=== PATIENT | female | born 1940 | race Caucasian/White ===

== ENCOUNTER 2018-02-20 01:52 | Emergency (ER) | payer MEDICARE, BC ==
--- NOTE | 2018-02-20 02:07 | ER Report ---
History and Physical Time Seen By MD: 02:07 Hx. of Stated Complaint: PT HAD A NOSE BLEED AROUND 6PM, THEY WERE ABLE TO CONTROL THE BLEEDING. PT HAD ANOTHER NOSE BLEED AROUND 10PM, GOT THE BLEEDING STOPPED. PT WOKE UP NOW WITH ANOTHER NOSE BLEED. CONCERNED ABOUT BLOOD LOSS. HPI/ROS CHIEF COMPLAINT: nose bleed and elevated blood pressures. HISTORY OF PRESENT ILLNESS: This is a 77 year old female. She came in to the ER tonight with her 3rd bloody nose of the day. Had one at 1800, 2200, and then early this morning. Worried about the amount of blood lost as she does have a mild anemia. They are visiting from [place] and the cold and dry air are much worse here. She has been struggling with blood pressure issues as well. Takes Bystolic, Lisinopril (recently doubled), and still running high. No history of nose bleeds in the past. No blood thinners, but does take a baby aspirin chronically. No other bleeding such as blood in urine, stool or bruising. No chest pain. No shortness of breath. Allergies: Coded Allergies: No Known Drug Allergies (Unverified , 02/20/18) Home Meds Active Scripts Amlodipine Besylate (AMLODIPINE BESYLATE) 5 Mg Tablet, 0.5 TAB PO QDAY, #15 TAB 0 Refills Prov:HADLEY FOFANA MD 02/20/18 Reviewed Nurses Notes: Yes Constitutional Vital Sign - Last 24 Hours 02/20/18 02/20/18 02/20/18 02/20/18 01:52 01:56 01:57 02:00 Temp 97.9 Pulse ??? 76 Resp 18 B/P (MAP) 190/65 (106) 190/65 181/64 (103) Pulse Ox 88 O2 Delivery Room Air 02/20/18 02/20/18 02/20/18 02/20/18 02:07 02:34 02:37 02:40 Pulse 69 68 B/P (MAP) 148/55 (86) 155/58 (90) Pulse Ox 87 85 02/20/18 02/20/18 02/20/18 02/20/18 02:45 02:50 02:52 02:57 Pulse 66 B/P (MAP) 144/53 (83) 141/49 (79) Pulse Ox 87 89 02/20/18 02/20/18 02/20/18 02/20/18 03:00 03:05 03:07 03:10 Pulse 66 B/P (MAP) 144/54 (84) 154/56 (88) 162/57 (92) Pulse Ox 89 02/20/18 02/20/18 02/20/18 02/20/18 03:15 03:17 03:20 03:22 Pulse 67 69 B/P (MAP) 158/57 (90) 148/52 (84) Pulse Ox 85 02/20/18 02/20/18 02/20/18 02/20/18 03:25 03:27 03:30 03:32 Pulse 71 73 B/P (MAP) 140/60 (86) 144/97 (113) Pulse Ox 86 85 02/20/18 02/20/18 02/20/18 02/20/18 03:35 03:37 03:40 03:45 Pulse 72 ??? B/P (MAP) 164/62 (96) 147/59 (88) 163/67 (99) Pulse Ox 88 84 02/20/18 02/20/18 02/20/18 02/20/18 03:50 03:55 04:00 04:05 B/P (MAP) 161/62 (95) 161/59 (93) 164/61 (95) 160/53 (88) 02/20/18 02/20/18 02/20/18 04:10 04:15 04:20 Pulse 73 B/P (MAP) 161/62 (95) 159/62 (94) 163/57 (92) Pulse Ox 87 Physical Exam General Appearance: The patient is alert, has no immediate need for airway protection and no current signs of toxicity. Eyes: Pupils equal and round no injection. ENT: Normal oral mucosa. Moist mucous membranes. The nasal passages show evidence of bleeding from the left nasal passage. No active bleeding. Has evidence of the mid nasal septum where it was bleeding. Neck: Neck is supple and non tender. Respiratory: Chest is non tender, lungs are clear to auscultation. Cardiac: regular rate and rhythm Skin: No rashes or lesions. DIFFERENTIAL DIAGNOSIS: After history and physical exam differential diagnosis was considered for nose bleed, with elevated blood pressure. Medical Decision Making Data Points Result Diagram: 02/20/18 0230 Laboratory Hematology Test 02/20/18 02:30 02/20/18 03:54 Red Blood Count 3.74 M/uL (4.17-5.56) Mean Corpuscular Volume 79.7 fL (80.0-96.0) Mean Corpuscular Hemoglobin 25.8 pg (26.0-33.0) Mean Corpuscular Hemoglobin Concent 32.3 g/dL (32.0-36.0) Red Cell Distribution Width 17.1 % (11.5-14.5) Mean Platelet Volume 8.5 fL (7.2-11.1) Neutrophils (%) (Auto) 76.8 % (39.4-72.5) Lymphocytes (%) (Auto) 11.3 % (17.6-49.6) Monocytes (%) (Auto) 9.7 % (4.1-12.4) Eosinophils (%) (Auto) 1.3 % (0.4-6.7) Basophils (%) (Auto) 0.9 % (0.3-1.4) Nucleated RBC Relative Count (auto) 0.0 /100WBC Neutrophils # (Auto) 6.3 K/uL (2.0-7.4) Lymphocytes # (Auto) 0.9 K/uL (1.3-3.6) Monocytes # (Auto) 0.8 K/uL (0.3-1.0) Eosinophils # (Auto) 0.1 K/uL (0.0-0.5) Basophils # (Auto) 0.1 K/uL (0.0-0.1) Nucleated RBC Absolute Count (auto) 0.00 K/uL Prothrombin Time 13.2 seconds (12.0-14.4) Prothromb Time International Ratio 1.00 Activated Partial Thromboplast Time 25 seconds (23-35) Whole Blood Glucose 157 mg/DL (75-110) Chemistry Test 02/20/18 02:30 02/20/18 03:54 White Blood Count 8.2 k/uL (4.5-11.0) Red Blood Count 3.74 M/uL (4.17-5.56) Hemoglobin 9.6 g/dL (12.0-16.0) Hematocrit 29.8 % (34.0-47.0) Mean Corpuscular Volume 79.7 fL (80.0-96.0) Mean Corpuscular Hemoglobin 25.8 pg (26.0-33.0) Mean Corpuscular Hemoglobin Concent 32.3 g/dL (32.0-36.0) Red Cell Distribution Width 17.1 % (11.5-14.5) Platelet Count 259 K/uL (150-450) Mean Platelet Volume 8.5 fL (7.2-11.1) Neutrophils (%) (Auto) 76.8 % (39.4-72.5) Lymphocytes (%) (Auto) 11.3 % (17.6-49.6) Monocytes (%) (Auto) 9.7 % (4.1-12.4) Eosinophils (%) (Auto) 1.3 % (0.4-6.7) Basophils (%) (Auto) 0.9 % (0.3-1.4) Nucleated RBC Relative Count (auto) 0.0 /100WBC Neutrophils # (Auto) 6.3 K/uL (2.0-7.4) Lymphocytes # (Auto) 0.9 K/uL (1.3-3.6) Monocytes # (Auto) 0.8 K/uL (0.3-1.0) Eosinophils # (Auto) 0.1 K/uL (0.0-0.5) Basophils # (Auto) 0.1 K/uL (0.0-0.1) Nucleated RBC Absolute Count (auto) 0.00 K/uL Prothrombin Time 13.2 seconds (12.0-14.4) Prothromb Time International Ratio 1.00 Activated Partial Thromboplast Time 25 seconds (23-35) Whole Blood Glucose 157 mg/DL (75-110) Coagulation Test 02/20/18 02:30 Prothrombin Time 13.2 seconds Prothromb Time International Ratio 1.00 Activated Partial Thromboplast Time 25 seconds ED Course/Re-evaluation ED Course Has anemia, with hemoglobin of 9.6. Vital signs stable other than elevated blood pressure. Given Labetalol 5mg IV and blood pressure significantly improved, but still high. Another dose of Labetalol 5mg given. Nose without bleeding, and small amount of Bacitracin ointment applied to the left nasal passage followed by a nasal clamp for about 15 minutes. The watched unclamped. No further bleeding identified. Discussed the combination of dry cold air here in [place] compared to [place]. Will continue Vaseline or ointment to the nose. Also starting low dose of Amlodipine for blood pressure. Decision to Disposition Date: Feb 20, 2018 Decision to Disposition Time: 04:11 Depart Departure Latest Vital Signs Vital Signs Date Time Temp Pulse Resp B/P (MAP) Pulse Ox O2 Delivery O2 Flow Rate FiO2 02/20/18 04:20 163/57 (92) 02/20/18 04:15 73 87 02/20/18 01:57 97.9 18 Room Air Impression: Primary Impression: Nosebleed Additional Impressions: Hypertension Anemia Condition: Improved Disposition: HOME OR SELF-CARE New Scripts Amlodipine Besylate (AMLODIPINE BESYLATE) 5 Mg Tablet 0.5 TAB PO QDAY, #15 TAB 0 Refills Prov: HADLEY FOFANA MD 02/20/18 Patient Instructions: Nosebleed (ED) Additional Instructions: Start a new blood pressure medicine called Amlodipine. Take 2.5mg once a day. You can repeat 2.5mg during the day as needed for elevated blood pressure. For the nose bleed, apply a small amount of vaseline or antibiotic ointment 1-2 times a day to help prevent drying of the nose. If bleeding resumes, use direct pressure for 15 minutes to stop the bleeding. If still bleeding, you can return for re-evaluation and we would consider some packing material or other medicines to stop the bleeding. Problem Qualifiers Additional Impressions: Hypertension Hypertension type: essential hypertension Qualified Codes: I10 - Essential (primary) hypertension Anemia Anemia type: unspecified type Qualified Codes: D64.9 - Anemia, unspecified HADLEY FOFANA MD Feb 20, 2018 02:07
[2018-02-20] MEDS: LABETALOL HCL 20 MG/4 ML SYR IVP ONE (02:37)
[2018-02-20 02:40] LABS: PLATELET COUNT, AUTOMATED 259 K/uL (150-450)
[2018-02-20] MEDS ORDERED: amLODIPine BESYL(*) 5 MG TAB PO ONE (04:10)
[2018-02-20] MEDS ORDERED: AMLO-111 PO (04:14)
[2018-02-20 04:20] VITALS: BP 163/57
[2018-02-22] MEDS ORDERED: PIOG15TA14 PO (13:57)
[2018-02-22] MEDS ORDERED: INSU100V24 SQ ×3 (13:57)
[2018-02-22] MEDS ORDERED: ACIPHX20PT PO (13:57)
[2018-02-22] MEDS ORDERED: CHOL10005 PO (13:57)
[2018-02-22] MEDS ORDERED: METF-452 PO (13:57)
[2018-02-22] MEDS ORDERED: NEBI10TA4 FT (13:57)
[2018-02-22] MEDS ORDERED: ROS10 PO (13:57)
[2018-02-22] MEDS ORDERED: LEVI SUBQ (13:57)
[2018-02-22] MEDS ORDERED: AZIL1TAB3 PO (13:57)
== END 2018-02-20 04:25 | disposition home or self-care (01) ==
LOC: ER 01:58
DX: R04.0 Epistaxis (principal); I10 Essential (primary) hypertension; D64.9 Anemia, unspecified
CPT/HCPCS: 30901; 36416; 82948; 85025; 85610; 85730; 96374; 99284; A9270; J3490